=== PATIENT | female | born 1945 | race Caucasian/White ===

== ENCOUNTER → 2017-08-25 09:20 | Outpatient (CLI) | payer MEDICARE, SELFPAY ==
--- NOTE | 2017-09-08 07:58 | PM.CARDMON.1 ---
[facility] [facility] Assistant Report Referral & Results Date Patient Seen: 08/25/17 Requesting provider: Mague Coyne Indication: Palpitations Duration of monitoring (days): 7 Diary information: No diary entries were present, there was 1 patient triggered events associated with sinus rhythm Data: Minimum heart rate identified was 43 beats per minute at 23:49 on August 30, 2017 Maximum heart rate identified was 214 beats per minute at 12:45 on August 30, 2017 The maximum heart rate was associated with a 4 beat run of SVT. 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 Patient's symptoms of palpitations might be associated with supraventricular dysrhythmias in origin. No clear extended runs of SVT or other serious dysrhythmia is identified however
--- NOTE | 2017-09-08 08:02 | P.HOLT.S_ITS ---
Laboratory Helper Report Referral & Results Date Patient Seen: 08/25/17 Requesting provider: Mague Coyne Indication: Palpitations Duration of monitoring (days): 7 Diary information: No diary entries were present, there was 1 patient triggered events associated with sinus rhythm Data: Minimum heart rate identified was 43 beats per minute at 23:49 on August 30, 2017 Maximum heart rate identified was 214 beats per minute at 12:45 on August 30, 2017 The maximum heart rate was associated with a 4 beat run of SVT. 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 Patient's symptoms of palpitations might be associated with supraventricular dysrhythmias in origin. No clear extended runs of SVT or other serious dysrhythmia is identified however
== END ==
PROVIDERS: Family Provider Family Medicine; PCP Family Medicine; Visit Provider Family Medicine
DX: R00.2 Palpitations (principal)
CPT/HCPCS: 0296T; 0298T

== ENCOUNTER → 2017-09-08 07:59 | Outpatient (CLI) | payer MEDICARE, SELFPAY ==
--- NOTE | 2017-09-08 09:20 | PM.TREADMILL ---
Cardiac Stress Test Report Referral & Results Date Patient Seen: 09/08/17 Time Patient Seen: 09:21 Requesting provider: Mague Coyne Indication: Palpitations Rest ECG: Unremarkable Procedure Note: Today following both written and verbal informed consent, the patient was exercised according to a standard [facility] protocol. The patient exercised for a total of 7 min 31 sec achieving a maximum heart rate of approximately 145 (there was a tremendous amount of artifact during activity making it extremely difficult to know what actual heart rate was, maximum was estimated via pulse oximetry). Patient's maximum systolic blood pressure was 180. This was an estimated 10.1 MET's. As above there was an incredible amount of motion artifact during activity that made it impossible to assess ST segments and nearly impossible even to assess for dysrhythmias. Patient was asymptomatic. In recovery including medially having her stop without motion there is no evidence of ST segment changes. Heart rate and blood pressure responses seem to be normal. Functional aerobic impairment was way off the scale estimate at-40% on the active scale or 140% normal Impression: No evidence of ischemia. Excellent exercise capacity At worst, this is a low risk study but I would actually call it normal. Please note: Actual ECG tracings can be found in the PACS system.
== END ==
PROVIDERS: Family Provider Family Medicine; PCP Family Medicine; Visit Provider Family Medicine
DX: R00.2 Palpitations (principal)
CPT/HCPCS: 93016; 93017; 93018

== ENCOUNTER → 2019-05-19 10:16 | Outpatient (CLI) | payer MEDICARE, SELFPAY ==
[2019-05-19 11:41] LABS: Add Manual Diff / Slide Review NO; Basophils Absolute Auto 100 /uL (0-100); Basophils Percent Auto 1.1 % (0-2); Eosinophils Absolute Auto 100 /uL (0-450); Eosinophils Percent Auto 2.5 % (2-4); Hematocrit 41.7 % (36-46); Lymphocytes Absolute Auto 1700 /uL (1100-4500); Lymphocytes Percent Auto 30.7 % (25-40); Mean Corpuscular HGB Conc 33.6 % (30-36); Mean Corpuscular Hemoglobin 29.2 PG (26-34); Mean Corpuscular Volume 86.7 fL (80-100); Monocytes Absolute Auto 400 /uL (0-900); Neutrophils Absolute Auto 3200 /uL (1500-7000); Neutrophils Percent Auto 57.7 % (50-75); Platelet Count 271 X10^3/uL (150-400); Red Blood Cell Count 4.81 X10^6/uL (4.0-5.2); Red Cell Distribution Width 13.7 % (11.6-14.8); White Blood Cell Count 5.5 X10^3/uL (4.5-11.0)
[2019-05-19 11:50] LABS: Cholesterol 231 mg/dL (140-199); HDL Cholesterol 69 mg/dL (40-60); LDL Cholesterol Calculated 142 mg/dL (<100); Triglycerides 100 mg/dL (35-150)
[2019-05-19 12:43] LABS: TSH w/ Reflex to FT4 3.19 uIU/mL (0.47-4.68)
[2019-05-19 13:01] LABS: Hep C Virus Ab w/Reflex Quant NEGATIVE s/c (NEGATIVE)
[2019-05-19 14:15] LABS: Alanine Aminotransferase 22 IU/L (<35); Albumin 4.4 g/dL (3.5-5.0); Albumin Globulin Ratio 1.4 (1.0-2.8); Alkaline Phosphatase 91 U/L (38-126); Aspartate Aminotransferase 36 IU/L (14-36); BUN Creatinine Ratio 21.7 (6-22); Bilirubin Total 0.4 mg/dL (0.2-1.3); Blood Urea Nitrogen 13 mg/dL (7-17); Calcium 10.2 mg/dL (8.4-10.2); Carbon Dioxide 26 mmol/L (22-32); Chloride 103 mmol/L (98-107); Estimated Glomerular Filt Rate > 60.0 mL/min (>60); Globulin 3.2 g/dL (1.7-4.1); Glucose 91 mg/dL (80-110); HEMOLYSIS < 15 (0-50); Potassium 3.8 mmol/L (3.4-5.1); Sodium 138 mmol/L (137-145); Total Protein 7.6 g/dL (6.3-8.2)
[2019-05-19 16:45] LABS: Vitamin D 25 Hydroxy (D3) 54.1 ng/mL (30.0-100.0)
[2019-05-22 15:54] LABS: Parathyroid Hormone Int 38 pg/mL (14-64)
== END ==
PROVIDERS: PCP Internal Medicine; Visit Provider Internal Medicine
DX: R00.2 Palpitations (principal); Z13.220 Encounter for screening for lipoid disorders; D48.5 Neoplasm of uncertain behavior of skin; Z11.59 Encounter for screening for other viral diseases; E21.3 Hyperparathyroidism, unspecified; M81.0 Age-related osteoporosis without current pathological fracture; E55.9 Vitamin D deficiency, unspecified; E78.1 Pure hyperglyceridemia
CPT/HCPCS: 36415; 80053; 80061; 82306; 83970; 84443; 85025; 86803

== ENCOUNTER → 2019-12-18 12:45 | Outpatient (CLI) | payer MEDICARE, SELFPAY ==
--- NOTE | 2019-12-18 13:01 | DI.MG.S_ITS ---
Patient Name: NICK BORDEN date: 1945 Sex: F Attending Physician: Ross Indications: Date: 12/18/2019 12:59 At the request of: RITO LONG Procedure: MM screening mammo BI BILATERAL DIGITAL SCREENING MAMMOGRAM 3D/2D WITH CAD: 12/18/2019 CLINICAL: Routine screening. Comparison is made to exams dated: 08/04/2017 mammogram, 07/21/2017 mammogram, and 05/29/2015 mammogram - [facility]. The tissue of both breasts is heterogeneously dense. This may lower the sensitivity of mammography. Current study was also evaluated with a Computer Aided Detection (CAD) system. There is a new 0.9 cm oval fat containing mass with an obscured and microlobulated margin and grouped fine punctate calcifications in the left breast at 2 o'clock posterior depth. No other significant masses, calcifications, or other findings are seen in either breast. IMPRESSION: INCOMPLETE: NEEDS ADDITIONAL IMAGING EVALUATION The new 0.9 cm oval fat containing mass in the left breast is indeterminate. Mediolateral and spot magnification views as well as additional views with possible ultrasound are recommended. This exam was interpreted at Station ID: [id number]. NOTE: For mammograms, a report in lay terms will be sent to the patient. Approximately 15% of breast malignancies will not be visualized mammographically. In the management of a palpable breast mass, a negative mammogram must not discourage biopsy of a clinically suspicious lesion. Electronically Signed By: Gerald love/mal:12/20/2019 09:09:30 letter sent: Additional Imaging Needed Continued Report - Page 2 of 2 Patient Name: NICK BORDEN date: 1945 Sex: F Attending Physician: Ross Indications: Date: 12/18/2019 12:59 At the request of: RITO LONG Procedure: MM screening mammo BI ACR BI-RADS Category 0: Incomplete 3340F
== END ==
PROVIDERS: PCP Internal Medicine; Referring Provider Internal Medicine; Visit Provider Internal Medicine
DX: Z12.31 Encounter for screening mammogram for malignant neoplasm of breast (principal)
CPT/HCPCS: 77063; 77067

== ENCOUNTER → 2020-01-17 12:33 | Outpatient (CLI) | payer MEDICARE, SELFPAY ==
--- NOTE | 2020-01-17 | DI.MG.S_ITS ---
UNILATERAL LEFT DIGITAL DIAGNOSTIC MAMMOGRAM 3D/2D WITH ADDITIONAL VIEWS: 01/17/2020 CLINICAL: Additional evaluation requested from prior study. Comparison is made to exams dated: 12/18/2019 mammogram, 08/04/2017 mammogram, 07/21/2017 mammogram, and 05/29/2015 mammogram - [facility]. The tissue of left breast is heterogeneously dense. This may lower the sensitivity of mammography. There is a 0.8 cm oval mass with an obscured and microlobulated margin and grouped fine punctate calcifications in the left breast at 2 o'clock posterior depth. This is seen in additional views. This is more prominent. No other significant masses or calcifications are seen in the breast. IMPRESSION: INCOMPLETE: NEEDS ADDITIONAL IMAGING EVALUATION The 0.8 cm oval mass in the left breast is indeterminate. A targeted ultrasound is recommended and will immediately follow. This exam was interpreted at Station ID: [id number]. NOTE: For mammograms, a report in lay terms will be sent to the patient. Approximately 15% of breast malignancies will not be visualized mammographically. In the management of a palpable breast mass, a negative mammogram must not discourage biopsy of a clinically suspicious lesion. Electronically Signed By: Romel Eduardo M.D. slc/:01/17/2020 13:30:23 ACR BI-RADS Category 0: Incomplete [id number]
--- NOTE | 2020-01-17 | DI.US.S_ITS ---
LIMITED ULTRASOUND OF LEFT BREAST AND AXILLA: 01/17/2020 CLINICAL: Patient returns today to evaluate a density in the left breast. Comparison is made to exams dated: 01/17/2020 mammogram, 12/18/2019 mammogram, 08/04/2017 ultrasound, 08/04/2017 mammogram, 07/21/2017 mammogram, and 05/29/2015 mammogram - [facility]. Color flow and real-time ultrasound of the left breast axilla were performed. Lewis scale images of the real-time examination were reviewed. There is a 1.2 cm x 0.9 cm x 0.8 cm oval mass with an angular margin in the left breast at 1 o'clock posterior depth 8 cm from the nipple. This oval mass is hypoechoic. There are related micro calcifications. Color flow imaging demonstrates that there is vascularity present. There also is a 3.4 cm x 1.8 cm x 1.5 cm oval enlarged lymph node with uniform cortical thickening with a circumscribed margin in the left axillary tail. Cortex measures 0.4 cm. This oval enlarged lymph node displays fatty hilum. IMPRESSION: SUSPICIOUS OF MALIGNANCY 1) The 1.2 cm x 0.9 cm x 0.8 cm oval mass in the left breast at 1 o'clock 8 cm from the nipple is at a high suspicion for malignancy. -An ultrasound guided biopsy is recommended. 2) The enlarged lymph node with uniform cortical thickening in the left axillary tail is at a low suspicion for malignancy. -An ultrasound guided biopsy is recommended. Exam findings were discussed with the patient by Dr. Jr Gil. This exam was interpreted at Station ID: [id number]. Electronically Signed By: Romel Eduardo M.D. slc/:01/17/2020 14:05:58 letter sent: Biopsy Required Ultrasound BI-RADS: 4c High suspicion of malignancy
== END ==
PROVIDERS: PCP Internal Medicine; Referring Provider Internal Medicine; Visit Provider Internal Medicine
DX: R92.8 Other abnormal and inconclusive findings on diagnostic imaging of breast (principal); N63.21 Unspecified lump in the left breast, upper outer quadrant; R59.0 Localized enlarged lymph nodes
CPT/HCPCS: 76642; 77065; G0279

== ENCOUNTER → 2020-01-31 12:32 | Outpatient (CLI) | payer MEDICARE, SELFPAY ==
--- NOTE | 2020-01-31 | DI.US.S_ITS ---
ULTRASOUND GUIDED BIOPSY LEFT BREAST USING VACUUM DEVICE WITH POST MAMMOGRAPHIC AND ULTRASOUND IMAGIN01/31/2020 CLINICAL: Left breast mass. PATIENT CONSENT: Risks (minor bleeding, infection, vasovagal reaction and repeat procedure), benefits and alternatives were explained to the patient and written informed consent was obtained. Correlation is made to exams dated: 01/17/2020 ultrasound, 01/17/2020 mammogram, 12/18/2019 mammogram, 08/04/2017 ultrasound, 08/04/2017 mammogram, and 07/21/2017 mammogram - [facility]. An ultrasound guided biopsy using real-time ultrasound was performed for the mass located in the left breast at 3 o'clock posterior depth. This was described on the previous ultrasound report. The skin was prepped in the usual manner. Local anesthetic was administered to the access site. The abnormality was approached from the lateral aspect. A 13 gauge biopsy needle was placed adjacent to the abnormality under ultrasound guidance. Once the needle was documented to be in the correct location, five specimens were obtained using the Mammotome biopsy system. Post procedure mammographic and ultrasound imaging demonstrates the clip at the targeted area. The specimens were sent to the laboratory for pathological analysis. IMPRESSION: ULTRASOUND GUIDED BIOPSY BENIGN Ultrasound guided biopsy of the mass in the left breast posterior depth was successful. 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 There are also micro-calcifications present. Pathology results are concordant with imaging findings. Recommend surgical consultation for further evaluation. This exam was interpreted at Station ID: [id number]. Juana Dorantes M.D. fx,aty/:02/04/2020 18:28:39
--- NOTE | 2020-01-31 | PATH_ITS ---
[facility] Accession Number: [id number] . 01 Material submitted: . breast - LEFT BREAST MASS 3:00 8CMFN . 02 Diagnosis: Left Breast, Mass 3 o'clock, 8 cm FN, Core Needle Biopsy: Fragments of benign intraductal papilloma. Apocrine metaplasia. Microcalcifications present in association with non-neoplastic tissue. Negative for atypical hyperplasia, in situ, or invasive carcinoma. [facility] 02/02/2020 1640 Local . 02 Comment: As part of routine quality and reliability engineer, Dr. Douglass also reviewed this case and agrees with the diagnosis. . 02 Electronically signed: . Maricel Wood MD, Pathologist NPI- [id number] . 01 Gross description: . Received one formalin-filled container, labeled with the patient's name and designated left breast mass 3 o'clock 8 cm FN. The specimen is received with a plastic filter in container, sample loose in container and consists of multiple portions of light yellow-matta tissue which range in size from less than 0.1 cm to 0.5 x 0.5 x 0.4 cm. The specimen is filtered and entirely submitted in one cassette. Possible collection date per container: 01/31/20. No collection time per container. Possible collection time per requisition: 13:19. Total fixation time: Approximately 15 hours. ([id number]) /FRR 02/01/2020 0223 Local . 02 Pathologist provided ICD-10: N63.20 . 02 CPT . 123088 Performed at: 01 [facility] [address] [place] [address], [place], [place] [id number] MD Gerald Purcell MD Phone: [phone] Performed at: 02 [facility] [id number] [place] [id number] MD Maricel Wood MD Phone: [phone]
--- NOTE | 2020-01-31 | DI.MG.S_ITS ---
UNILATERAL LEFT DIGITAL DIAGNOSTIC MAMMOGRAM POST-NEEDLE BIOPSY: 01/31/2020 CLINICAL: Post clip placement. Left breast mass. Comparison is made to exams dated: 01/17/2020 mammogram, 12/18/2019 mammogram, and 08/04/2017 mammogram - [facility]. The tissue of left breast is heterogeneously dense. This may lower the sensitivity of mammography. A biopsy clip is seen at the site of the targeted lesion. IMPRESSION: BENIGN A biopsy clip is at the biopsy site. This exam was interpreted at Station ID: Unknown. NOTE: For mammograms, a report in lay terms will be sent to the patient. Approximately 15% of breast malignancies will not be visualized mammographically. In the management of a palpable breast mass, a negative mammogram must not discourage biopsy of a clinically suspicious lesion. Electronically Signed By: Juana Bess M.D. fx/:02/02/2020 10:11:07 ACR BI-RADS Category 2: Benign Finding(s) 3342F
== END ==
PROVIDERS: PCP Internal Medicine; Referring Provider Internal Medicine; Visit Provider Internal Medicine
DX: D24.2 Benign neoplasm of left breast (principal); N60.82 Other benign mammary dysplasias of left breast; N63.25 Unspecified lump in the left breast, overlapping quadrants; N63.20 Unspecified lump in the left breast, unspecified quadrant
CPT/HCPCS: 19083; 77065

== ENCOUNTER → 2024-03-19 | Outpatient (CLI) | payer MEDICARE, SELFPAY ==
--- NOTE | 2024-03-19 10:01 | DI.MG.S_ITS ---
BILATERAL DIGITAL SCREENING MAMMOGRAM 3D/2D WITH CAD: 03/19/2024 CLINICAL: Routine screening. Comparison is made to exams dated: 12/18/2019 mammogram and 07/21/2017 mammogram - [facility]. The breasts are heterogeneously dense, which may obscure small masses (category c / 51-75% glandular tissue). Current study was also evaluated with a Computer Aided Detection (CAD) system. No significant masses, calcifications, or other findings are seen in either breast. There has been no significant interval change. IMPRESSION: NEGATIVE There is no mammographic evidence of malignancy. A 1 year screening mammogram is recommended. Based on the Tyrer Cuzick model (a risk assessment model) the patient's lifetime risk is 5.9% and her 10 year risk is 0.0%. According to the ACR, ACS, and NCCN guidelines, an annual breast MRI exam along with mammogram is recommended if the patient's lifetime risk is 20% or greater. This exam was interpreted at Station ID: [id number]. NOTE: For mammograms, a report in lay terms will be sent to the patient. Approximately 15% of breast malignancies will not be visualized mammographically. In the management of a palpable breast mass, a negative mammogram must not discourage biopsy of a clinically suspicious lesion. Electronically Signed By: Janneth stock/mal:03/31/2024 08:56:10 letter sent: Normal Exam ACR BI-RADS Category 1: Negative
== END ==
PROVIDERS: PCP Nurse Practitioner Family; Referring Provider Nurse Practitioner Family; Visit Provider Nurse Practitioner Family
DX: Z12.31 Encounter for screening mammogram for malignant neoplasm of breast (principal); R92.333 Mammographic heterogeneous density, bilateral breasts
CPT/HCPCS: 77063; 77067

== ENCOUNTER → 2024-06-24 07:11 | Outpatient (CLI) | payer MEDICARE, SELFPAY ==
[2024-06-24 08:47] LABS: Add Manual Diff / Slide Review NO; Basophils Absolute Auto 0 /uL (0-100); Basophils Percent Auto 0.7 % (0-2); Eosinophils Absolute Auto 100 /uL (0-450); Eosinophils Percent Auto 2.3 % (2-4); Hematocrit 41.2 % (36-46); Hemoglobin 14.2 g/dL (12.0-16.0); Lymphocytes Absolute Auto 1500 /uL (1100-4500); Lymphocytes Percent Auto 28.3 % (25-40); Mean Corpuscular HGB Conc 34.4 % (30-36); Mean Corpuscular Hemoglobin 29.5 PG (26-34); Mean Corpuscular Volume 85.6 fL (80-100); Monocytes Absolute Auto 500 /uL (0-900); Monocytes Percent Auto 9.1 % (3-14); Neutrophils Absolute Auto 3100 /uL (1500-7000); Neutrophils Percent Auto 59.6 % (50-75); Platelet Count 299 X10^3/uL (150-400); Red Blood Cell Count 4.81 X10^6/uL (4.0-5.2); White Blood Cell Count 5.3 X10^3/uL (4.5-11.0)
[2024-06-24 09:25] LABS: Albumin 4.4 g/dL (3.5-5.0); Albumin Globulin Ratio 1.6 (1.0-2.8); Alkaline Phosphatase 87 U/L (38-126); BUN Creatinine Ratio 18.9 (6-22); Bilirubin Total 0.7 mg/dL (0.2-1.3); Blood Urea Nitrogen 10 mg/dL (7-17); Calcium 9.6 mg/dL (8.4-10.2); Carbon Dioxide 26 mmol/L (22-32); Chloride 101 mmol/L (98-107); Cholesterol 254 mg/dL (140-199); Estimated Glomerular Filt Rate > 60 mL/min (>60); Globulin 2.8 g/dL (1.7-4.1); Glucose 88 mg/dL (80-110); HDL Cholesterol 108 mg/dL (40-60); HEMOLYSIS < 15 (0-50); LDL Cholesterol Calculated 129 mg/dL (<100); Potassium 4.8 mmol/L (3.4-5.1); Sodium 135 mmol/L (137-145); Total Protein 7.2 g/dL (6.3-8.2); Triglycerides 84 mg/dL (35-150)
[2024-06-24 09:36] LABS: TSH w/ Reflex to FT4 1.83 uIU/mL (0.47-4.68)
[2024-06-24 09:40] LABS: Vitamin D 25 Hydroxy (D3) 50.7 ng/mL (30.0-100.0)
[2024-06-24 09:41] LABS: Alanine Aminotransferase 23 IU/L (<35); Aspartate Aminotransferase 37 IU/L (14-36)
[2024-06-24 10:53] LABS: Hemoglobin A1C% w Est Avg Glu 5.3 % (4.0-6.0)
== END ==
PROVIDERS: PCP Nurse Practitioner Family; Referring Provider Nurse Practitioner Family; Visit Provider Nurse Practitioner Family
DX: I10 Essential (primary) hypertension (principal); M81.0 Age-related osteoporosis without current pathological fracture; G47.33 Obstructive sleep apnea (adult) (pediatric); Z68.30 Body mass index [BMI] 30.0-30.9, adult
CPT/HCPCS: 36415; 80053; 80061; 82306; 83036; 84443; 85025

== ENCOUNTER → 2024-07-02 14:50 | Outpatient (CLI) | payer MEDICARE, SELFPAY ==
--- NOTE | 2024-07-02 14:53 | DI.RAD.S_ITS ---
PROCEDURE: XR DEXA AXIAL SKELETON INDICATIONS: age related osteoporosis COMPARISON: [facility], , DEXA AXIAL SKELETON, 09/27/2016, 10:07. FINDINGS: Lumbar Spine: Bone mineral density is 0.711 (previously 0.854) g/cm2, T score -3.1 (previously-2.7). Left Femoral Neck: Bone mineral density 0.575 (previously 0.783) g/cm2, T score -2.5 (previously-1.8). Left Hip: Bone mineral density 0.732 (previously 0.837) g/cm2, T score -1.7 (previously-1.4). Fracture Risk Calculation (when applicable): 10-year fracture risk of a major osteoporotic fracture 18 percent and of a hip fracture 5.7 percent. (T score greater or equal to -1.0 to: NORMAL) (T score from -1.1 to -2.4: OSTEOPENIA) (T score less than or equal to -2.5: OSTEOPOROSIS) IMPRESSION: Osteoporosis---recommend repeat DEXA in 2 years or less for reassessment of response to treatment. Follow-up guidelines as follows: Osteoporosis: Consider a repeat DEXA and Vertebral Fracture Assessment (VFA) exam in 2 years or sooner if medically necessary, to reassess this patient's status. Osteopenia: Consider a repeat DEXA in 2-3 years to reassess this patient's status, or if there is a new clinical indication. Normal: Consider a repeat DEXA in 5 years or sooner, or if there is a new clinical indication. All treatment decisions require clinical judgment and consideration of individual patient factors, including patient preferences, comorbidities, previous drug use, risk factors not captured in the FRAX model (e.g., frailty, falls, vitamin D deficiency, increased bone turnover, interval significant decline in bone density ) and possible under- or over-estimation of fracture risk by FRAX. In addition, the NOF Guide recommends that FDA-approved medical therapies be considered in postmenopausal women and men age >= 50 years with a: * Hip or vertebral (clinical or morphometric) fracture * T-score of <=-2.5 at the spine or hip * Ten-year fracture probability by FRAX of >= 3% for hip fracture or >=20% for major osteoporotic fracture. Dictated by: Gaurav Islas M.D. on 07/05/2024 at 16:54 Approved by: Gaurav Islas M.D. on 07/05/2024 at 16:55
== END ==
PROVIDERS: PCP Nurse Practitioner Family; Referring Provider Nurse Practitioner Family; Visit Provider Nurse Practitioner Family
DX: M81.0 Age-related osteoporosis without current pathological fracture (principal)
CPT/HCPCS: 77080

== ENCOUNTER → 2024-08-27 11:03 | Outpatient (CLI) | payer MEDICARE, SELFPAY | LOC: LAB 11:05 | PROVIDERS: PCP Nurse Practitioner Family; Referring Provider Nurse Practitioner Family; Visit Provider Nurse Practitioner Family | DX: Z12.11 Encounter for screening for malignant neoplasm of colon (principal) | CPT/HCPCS: 82274 ==

== ENCOUNTER → 2025-01-22 08:03 | Outpatient (CLI) | payer MEDICARE, SELFPAY | PROVIDERS: PCP Nurse Practitioner Family; Visit Provider Registered Nurse | DX: R30.0 Dysuria (principal) | CPT/HCPCS: 87086 ==

== ENCOUNTER → 2025-02-02 07:58 | Outpatient (CLI) | payer MEDICARE, SELFPAY ==
[2025-02-02 09:15] LABS: Influenza A - CEPHEID Flu A NEGATIVE (NEGATIVE); Influenza B - CEPHEID Flu B NEGATIVE (NEGATIVE)
[2025-02-02 09:16] LABS: COVID-19 CEPHEID 4-PLEX PCR Negative (Negative)
== END ==
PROVIDERS: PCP Nurse Practitioner Family; Visit Provider Nurse Practitioner Family
DX: R39.15 Urgency of urination (principal); J02.9 Acute pharyngitis, unspecified
CPT/HCPCS: 87086; 87637

== ENCOUNTER → 2025-02-26 13:48 | Outpatient (CLI) | payer MEDICARE, SELFPAY ==
--- NOTE | 2025-02-26 13:49 | DI.RAD.S_ITS ---
PROCEDURE: XR FOOT RT MIN 3V
== END ==
PROVIDERS: PCP Nurse Practitioner Family; Referring Provider Registered Nurse; Visit Provider Registered Nurse
DX: M79.671 Pain in right foot (principal)
CPT/HCPCS: 73630

== ENCOUNTER → 2025-03-25 07:33 | Outpatient (CLI) | payer MEDICARE, SELFPAY ==
--- NOTE | 2025-03-25 07:34 | DI.MG.S_ITS ---
MM screening mammo BI: 03/25/2025. BI-RADS: 1 CLINICAL: 79-year old female for bilateral screening mammogram. Tyrer-Cuzick lifetime risk of 4.2%. No personal or first-degree family history of breast cancer. The patient had a prior left breast biopsy. PRIOR EXAMS 03/19/2024, 12/18/2019, 07/21/2017, 05/29/2015. MAMMOGRAPHY TECHNIQUE: 2D and 3D (tomosynthesis) digital mammographic views obtained, with additional images as needed for full coverage. Current study was also evaluated with a Computer Aided Detection (CAD) system. DENSITY C. The breasts are heterogeneously dense, which may obscure small masses. MAMMOGRAPHY FINDINGS Bilateral: No suspicious mass, asymmetry, microcalcification, or other abnormality seen. IMPRESSION: * No evidence of malignancy. RECOMMENDATIONS Bilateral * Annual screening mammography. OVERALL ASSESSMENT CATEGORY BI-RADS-1: Negative. The [employer] recommends annual screening mammography beginning at age 40 for women with average risk of breast cancer. ELECTRONICALLY SIGNED: Micheal Dorantes M.D. on 03/25/2025 at 11:49:29 PM PT Interpreting Station ID: [id number]
== END ==
LOC: MAMMO 07:33
PROVIDERS: Family Provider Nurse Practitioner Family; PCP Nurse Practitioner Family; Referring Provider Nurse Practitioner Family; Visit Provider Nurse Practitioner Family
DX: Z12.31 Encounter for screening mammogram for malignant neoplasm of breast (principal); R92.333 Mammographic heterogeneous density, bilateral breasts
CPT/HCPCS: 77063; 77067